=== PATIENT | female | born 1960 | race Caucasian/White ===

== ENCOUNTER 2017-06-14 19:10 | Emergency (ER) | payer MEDICAID ==
[2017-06-14] MEDS ORDERED: Lidocaine 1% 2 ML ONE (20:36)
--- NOTE | 2017-06-14 20:48 | CT ---
Head CT Technique: Multiple axial sections through the brain were obtained. Intravenous contrast was not utilized. Comparison: No previous intracranial imaging is available. Findings: Ventricles along with basal cisterns and sulci over the convexities are within normal limits for the patient's age. No abnormal parenchymal densities are seen. No evidence of intracranial hemorrhage. No midline shift or mass effect is seen. Bone window settings were reviewed which shows the visualized sinuses to appear clear. No acute calvarial abnormality is seen. Impression: 1. No acute intracranial abnormality is identified on noncontrast head CT exam. Diagnostic code #1
--- NOTE | 2017-06-14 21:03 | EDM.PDOC ---
ED HPI GENERAL MEDICAL PROBLEM - General Chief Complaint: Chest Pain Stated Complaint: CHEST PAIN Time Seen by Provider: 06/14/17 19:15 Source of Information: Reports: Patient, Family (Daughter), RN Notes Reviewed History Limitations: Reports: No Limitations - History of Present Illness INITIAL COMMENTS - FREE TEXT/NARRATIVE: The patient states that she has had central chest pain on and off, 2-3 times a day, for the past 4-5 days. It is a pressure sensation in character. It is a pain, not discomfort. The pain radiates to her right scapula and to her right upper extremity all the way down to her right elbow. At the same time, she experiences low back pain and, tonight only, right groin pain. The pain comes on gradually, and lasts anywhere from 5-30 minutes. It is not modifiable. The patient is unsure if she experiences associated dyspnea nausea, or sense of impending doom, but she does state that she has experienced associated diaphoresis. The patient has also been experiencing a headache on and off for the past 4-5 days. The headache will come on prior to the chest pain, and sometimes come on without the associated chest pain and other symptoms. Her headache is pounding and throbbing in character. She reports associated visual changes such as sparkling lights or wavy lines, and she has had associated nausea. She denies both photophobia and phonophobia. She feels generally weak with the headaches, but has not had any neurologic changes such as tingling, numbness, or focal weakness. The patient states that she had similar headaches when she was in her late teens , which eventually resolved, then recurred around 2012. She believes that she was told when she was a teenager that she had migraines, but does not recall ever receiving any sort of medical treatment. She believes that her last had imaging study was sometime before 2010. The patient has not taken any medications for any of her symptoms over the past 4-5 days. She states that she simply lies down in a dark room, and, typically, her symptoms have resolved by the morning. The patient does not have a PCP. Her last general physical exam was 3-5 years ago. Left Chest Pain Score (Numeric/FACES): 5 - Related Data Allergies Allergy/AdvReac Type Severity Reaction Status Date / Time No Known Allergies Allergy Verified 06/14/17 19:14 Home Meds: Home Meds . 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: - Past Surgical History HEENT Surgical History: Reports: Oral Surgery ([place] teeth extraction), Tonsillectomy GI Surgical History: Reports: Cholecystectomy Female Surgical History: Reports: Section (x 2), D&C (x 1), Endometrial Ablation Musculoskeletal Surgical History: Reports: Other (See Below) (Right thumb repair ) Social & Family History - Tobacco Use Smoking Status *Q: Former Smoker Years of Tobacco use: 38 Packs/Tins Daily: 1.5 Month Tobacco Last Used: Quit 2007 Second Hand Smoke Exposure: No - Caffeine Use Caffeine Use: Reports: Coffee - Alcohol Use Alcohol Use History: Yes Alcohol Use Frequency: Socially - Recreational Drug Use Recreational Drug Use: No - Living Situation & Occupation Living situation: Reports: , with Family Occupation: Employed ([employer]) ED ROS GENERAL - Review of Systems Review Of Systems: See Below Constitutional: Reports: No Symptoms HEENT: Reports: No Symptoms Respiratory: Reports: No Symptoms Cardiovascular: Reports: No Symptoms Endocrine: Reports: No Symptoms GI/Abdominal: Reports: Diarrhea (non-bloody, 2 days ago) : Reports: No Symptoms Musculoskeletal: Reports: No Symptoms Skin: Reports: No Symptoms Neurological: Reports: No Symptoms Psychiatric: Reports: No Symptoms Hematologic/Lymphatic: Reports: No Symptoms Immunologic: Reports: No Symptoms ED EXAM, GENERAL - Physical Exam Exam: See Below Exam Limited By: No Limitations General Appearance: Alert, WD/WN, Anxious Eye Exam: Bilateral Eye: Normal Inspection Ears: Normal External Exam, Hearing Grossly Normal Nose: Normal Inspection, No Blood Throat/Mouth: Normal Inspection, Normal Lips, Normal Voice, No Airway Compromise Head: Atraumatic, Normocephalic Neck: Normal Inspection, Full Range of Motion Respiratory/Chest: No Respiratory Distress, Lungs Clear, Normal Breath Sounds, No Accessory Muscle Use, Other (Tenderness to palpation of the sternum creating a sharp pain that the patient states is different than her presenting symptom) Cardiovascular: Normal Peripheral Pulses, Regular Rate, Rhythm, No Gallop, No JVD, No Murmur, No Rub Peripheral Pulses: 4+: Radial (L), Radial (R) GI/Abdominal: Normal Bowel Sounds, Soft, No Organomegaly, No Distention, No Abnormal Bruit, No Mass, Tender (Mild epigastric only. Nontender elsewhere.) (Female) Exam: Deferred Rectal (Female) Exam: Deferred Back Exam: Normal Inspection, Full Range of Motion. No: CVA Tenderness (L), CVA Tenderness (R) Extremities: Normal Inspection, Normal Range of Motion, No Pedal Edema, Normal Capillary Refill Neurological: Alert, Oriented, CN II-XII Intact, Normal Cognition, No Motor/ Sensory Deficits Psychiatric: Normal Affect, Anxious Skin Exam: Warm, Dry, Intact, Normal Color, No Rash EKG INTERPRETATION EKG Date: 06/14/17 Time: 19:19 Rhythm: NSR Rate (Beats/Min): 82 [place]: Normal P-Wave: Present QRS: Normal ST-T: Normal QT: Normal Comparison: NA - No Prior EKG Course - Vital Signs Last Recorded V/S: Last Vital Signs Temp 36.8 C 06/14/17 19:14 Pulse 89 06/14/17 19:14 Resp 20 06/14/17 19:14 BP 152/70 H 06/14/17 19:14 Pulse Ox 97 06/14/17 19:14 - Orders/Labs/Meds Orders: Active Orders 24 hr Category Date Time Status EKG Documentation Completion [RC] STAT Care 06/14/17 19:56 Active Chest 2V [CR] Stat Exams 06/14/17 19:55 Taken Labs: Laboratory Tests 06/14/17 06/14/17 06/14/17 Range/Units 19:50 19:50 19:50 WBC 6.25 (3.98-10.04) K/mm3 RBC 4.61 (3.98-5.22) M/mm3 Hgb 14.7 (11.2-15.7) gm/L Hct 42.6 (34.1-44.9) % MCV 92.4 (79.4-94.8) fl MCH 31.9 (25.6-32.2) pg MCHC 34.5 (32.2-35.5) g/dl RDW Std Deviation 39.7 (36.4-46.3) fL Plt Count 189 (182-369) K/mm3 MPV 10.9 (9.4-12.3) fl Neutrophils % (Manual) 62 H (40-60) % Band Neutrophils % 1 (0-10) % Lymphocytes % (Manual) 32 (20-40) % Atypical Lymphs % 0 % Monocytes % (Manual) 5 (2-10) % Eosinophils % (Manual) 0 L (0.7-5.8) % Basophils % (Manual) 0 L (0.1-1.2) Platelet Estimate Adequate RBC Morph Comment Normal PT 10.4 (8.0-13.0) SECONDS INR 0.96 APTT 25 (22-36) SECONDS D-Dimer, Quantitative 0.25 (0.19-0.59) mg/L Puncture Site ABG pH (7.35-7.45) ABG pCO2 (35.0-45.0) mmHg ABG pO2 (80.0-100.0) mmHg ABG HCO3 (22.0-26.0) meq/L ABG O2 Saturation (96.0-97.0) % ABG Base Excess (-2-2.0) O2 Delivery Device Sodium 146 H (136-145) mEq/L Potassium 3.8 (3.5-5.1) mEq/L Chloride 107 (98-107) mEq/L Carbon Dioxide 28 (21-32) mEq/L Anion Gap 14.8 (5-15) BUN 21 H (7-18) mg/dL Creatinine 1.2 H (0.55-1.02) mg/dL Est Cr Clr Drug Dosing 38.56 mL/min Estimated GFR (MDRD) 46 (>60) mL/min BUN/Creatinine Ratio 17.5 (14-18) Glucose 108 H (74-106) mg/dL Calcium 8.9 (8.5-10.1) mg/dL Total Bilirubin 0.4 (0.2-1.0) mg/dL AST 13 L (15-37) U/L ALT 19 (14-59) U/L Alkaline Phosphatase 71 (46-116) U/L Troponin I < 0.017 (0.00-0.056) ng/mL Total Protein 7.1 (6.4-8.2) g/dl Albumin 4.0 (3.4-5.0) g/dl Globulin 3.1 gm/dL Albumin/Globulin Ratio 1.3 (1-2) Lipase 300 (73-393) U/L 06/14/17 Range/Units 19:55 WBC (3.98-10.04) K/mm3 RBC (3.98-5.22) M/mm3 Hgb (11.2-15.7) gm/L Hct (34.1-44.9) % MCV (79.4-94.8) fl MCH (25.6-32.2) pg MCHC (32.2-35.5) g/dl RDW Std Deviation (36.4-46.3) fL Plt Count (182-369) K/mm3 MPV (9.4-12.3) fl Neutrophils % (Manual) (40-60) % Band Neutrophils % (0-10) % Lymphocytes % (Manual) (20-40) % Atypical Lymphs % % Monocytes % (Manual) (2-10) % Eosinophils % (Manual) (0.7-5.8) % Basophils % (Manual) (0.1-1.2) Platelet Estimate RBC Morph Comment PT (8.0-13.0) SECONDS INR APTT (22-36) SECONDS D-Dimer, Quantitative (0.19-0.59) mg/L Puncture Site Lt radial ABG pH 7.47 H (7.35-7.45) ABG pCO2 35.0 (35.0-45.0) mmHg ABG pO2 99.0 (80.0-100.0) mmHg ABG HCO3 25.3 (22.0-26.0) meq/L ABG O2 Saturation 98.6 H (96.0-97.0) % ABG Base Excess 2.4 H (-2-2.0) O2 Delivery Device Room air Sodium (136-145) mEq/L Potassium (3.5-5.1) mEq/L Chloride (98-107) mEq/L Carbon Dioxide (21-32) mEq/L Anion Gap (5-15) BUN (7-18) mg/dL Creatinine (0.55-1.02) mg/dL Est Cr Clr Drug Dosing mL/min Estimated GFR (MDRD) (>60) mL/min BUN/Creatinine Ratio (14-18) Glucose (74-106) mg/dL Calcium (8.5-10.1) mg/dL Total Bilirubin (0.2-1.0) mg/dL AST (15-37) U/L ALT (14-59) U/L Alkaline Phosphatase (46-116) U/L Troponin I (0.00-0.056) ng/mL Total Protein (6.4-8.2) g/dl Albumin (3.4-5.0) g/dl Globulin gm/dL Albumin/Globulin Ratio (1-2) Lipase (73-393) U/L Meds: Medications Discontinued Medications Generic Name Dose Route Start Last Admin Trade Name Leslie PRN Reason Stop Dose Admin Lidocaine HCl Confirm 06/14/17 20:36 Xylocaine-Mpf 1% Administered 06/14/17 20:37 Dose 2 mls @ as directed .ROUTE .STK-MED ONE - Re-Assessments/Exams Free Text/Narrative Re-Assessment/Exam: 06/14/17 20:15 Two-view chest radiograph appears to be grossly unremarkable. Cardiac silhouette is within normal limits. No pulmonary vascular congestion. No pleural effusions. No focal infiltrate. No pneumothorax. No left breast shadow, noted. Formal read per the Radiologist pending. 06/14/17 22:26 CT of the head without contrast is read by Dr. Fu as: 1. No acute intracranial abnormality is identified on noncontrast head CT exam. 06/14/17 22:37 Test results discussed with the patient. Today's workup is unremarkable, and does not explain the constellation of symptoms that the patient presented with. I suspect that the patient is suffering from migraine headaches with migraine equivalents. Ordinarily, I would prescribe the patient a migraine abortive medication, such as Maxalt, however, such a medication would be contraindicated in the presence of coronary disease. Clinically, I do not suspect that the patient's chest pain was cardiac in etiology, however, I am recommending that she follow-up with Dr. Tarango to arrange for an outpatient stress test. Presuming the stress test is negative, she could then be prescribed Maxalt, or any other medication that she and Dr. Tarango felt appropriate to treat migraines. The patient is in agreement with this approach. Departure - Departure Time of Disposition: 22:40 Disposition: Home, Self-Care 01 Condition: Good Clinical Impression: Migraine equivalent syndrome, Migraine headache with aura, Chest pain, Low back pain - Discharge Information Instructions: Migraine Headache, [id number], Chest Pain Observation Referrals: PCP,None [Primary Care Provider] - Karrie Tarango [Physician] - Forms: ED Department Discharge Additional Instructions: You were seen in the emergency room for chest pain, low back pain, right groin pain, and a headache. Workup in the ER included blood work, an arterial blood gas, an ECG, a chest x- ray, and a CT scan of your head. Your entire workup was unremarkable, and does not explain the constellation of your symptoms. Based on your history and physical examination, you are MOST LIKELY suffering from migraine headaches, and your other symptoms (chest pain, low back pain, groin pain) may be due to the migraine, as well, a condition known as a migraine equivalent. We are recommending that you follow-up with Dr. Tarango to arrange for an outpatient stress test to confirm that your chest pain was not cardiac in etiology. Presuming your stress test is negative, you and Dr. Tarango can then discuss migraine treatment options. If any other problems, please do not hesitate to return to the ER. - My Orders Last 24 Hours: My Active Orders 06/14/17 19:55 Chest 2V [CR] Stat 06/14/17 19:56 EKG Documentation Completion [RC] STAT - Assessment/Plan Last 24 Hours: My Active Orders 06/14/17 19:55 Chest 2V [CR] Stat 06/14/17 19:56 EKG Documentation Completion [RC] STAT
--- NOTE | 2017-06-15 08:05 | CR ---
Chest: Two views of the chest were obtained. Comparison: No previous study. Heart size and mediastinum are normal. Lungs are clear. Bony structures are within normal limits for the patient's age. Surgical clips are seen from prior cholecystectomy. Calcification noted overlying the upper pole of the right kidney possibly due to nonobstructing renal stone. Impression: 1. Incidental findings. Nothing acute is seen. Diagnostic code #2
== END 2017-06-14 22:50 | disposition home or self-care (01) ==
LOC: JD.ED 19:10
DX: G43.109 Migraine with aura, not intractable, without status migrainosus (principal); M54.5 Low back pain; R07.9 Chest pain, unspecified; Z87.891 Personal history of nicotine dependence
CPT/HCPCS: 36415; 36600; 70450; 70450-26; 71020; 71020-26; 80053; 82803; 83690; 84484; 85025; 85379; 85610; 85730; 93005; 93010; 99285; 99285-25

== ENCOUNTER 2017-07-15 11:51 | Emergency (ER) | payer MEDICAID ==
--- NOTE | 2017-07-15 12:19 | EDM.PDOC ---
ED HPI GENERAL MEDICAL PROBLEM - General Chief Complaint: Genitourinary Problem Stated Complaint: BLOOD IN URINE Time Seen by Provider: 07/15/17 12:02 Source of Information: Reports: Patient History Limitations: Reports: No Limitations - History of Present Illness INITIAL COMMENTS - FREE TEXT/NARRATIVE: 57-year-old female presents for evaluation treatment of hematuria. Patient reports started a few hours ago. She reports that she woke this morning urinating did not appreciate any blood in her urine then. She states a few hours ago she noticed she had some blood in her urine. She also states her on that sometimes she developed pain to the right pelvis. She describes this as a dull steady pain. She denies any fevers, nausea, vomiting, dysuria, back pain or flank pain. She reports that she did have one episode of diarrhea today prior to hematuria starting. No blood in her stool. She reports she does not have frequent urinary tract infections and has never been diagnosed with done. She did have a kidney stone several years ago and had significant pain with that. There patient reports that she had history of kidney problems this child. States that she had "brown urine" and was hospitalized as a child. She does not see nephrologists and does not know what she was diagnosed with. Patient is postmenopausal. Primary care providers Dr. Gage. Onset: Today Right Lower Abdominal Pain Score (Numeric/FACES): 1 - Related Data Allergies Allergy/AdvReac Type Severity Reaction Status Date / Time No Known Allergies Allergy Verified 07/15/17 11:56 Home Meds: Home Meds . 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: - Past Surgical History HEENT Surgical History: Reports: Oral Surgery, Tonsillectomy GI Surgical History: Reports: Cholecystectomy Female Surgical History: Reports: Section, D&C, Endometrial Ablation Musculoskeletal Surgical History: Reports: Other (See Below) Social & Family History - Tobacco Use Smoking Status *Q: Former Smoker Years of Tobacco use: 40 Packs/Tins Daily: 1 Used Tobacco, but Quit: No Month Tobacco Last Used: Quit 2007 Second Hand Smoke Exposure: No - Caffeine Use Caffeine Use: Reports: Coffee - Recreational Drug Use Recreational Drug Use: No - Living Situation & Occupation Living situation: Reports: , with Family Occupation: Employed ([employer] ED ROS GENERAL - Review of Systems Review Of Systems: See Below Constitutional: Denies: Fever, Chills, Malaise GI/Abdominal: Reports: Diarrhea (x1 today). Denies: Abdominal Pain, Nausea, Vomiting : Reports: Hematuria, Pain (right groin). Denies: Dysuria, Flank Pain Musculoskeletal: Denies: Back Pain ED EXAM, RENAL/ - Physical Exam Exam: See Below Exam Limited By: No Limitations General Appearance: Alert, WD/WN, No Apparent Distress, Anxious, Thin Eye Exam: Bilateral Eye: Normal Inspection Ears: Normal External Exam Nose: Normal Inspection Throat/Mouth: Normal Inspection, Normal Voice, No Airway Compromise Respiratory/Chest: No Respiratory Distress, Lungs Clear, Normal Breath Sounds Cardiovascular: Normal Peripheral Pulses, Regular Rate, Rhythm, No Murmur GI/Abdominal: Normal Bowel Sounds, Soft, Non-Tender, No Mass Back Exam: Normal Inspection. No: CVA Tenderness (L), CVA Tenderness (R) Neurological: Alert, Oriented, Normal Cognition Psychiatric: Normal Affect, Normal Mood Skin Exam: Warm, Dry, Normal Color Course - Vital Signs Last Recorded V/S: Last Vital Signs Temp 36.7 C 07/15/17 11:57 Pulse 83 07/15/17 11:57 Resp BP 145/60 H 07/15/17 11:57 Pulse Ox 99 07/15/17 11:57 - Orders/Labs/Meds Labs: Laboratory Tests 07/15/17 07/15/17 07/15/17 Range/Units 12:07 13:20 13:20 WBC 7.19 (3.98-10.04) K/mm3 RBC 4.52 (3.98-5.22) M/mm3 Hgb 14.4 (11.2-15.7) gm/L Hct 42.2 (34.1-44.9) % MCV 93.4 (79.4-94.8) fl MCH 31.9 (25.6-32.2) pg MCHC 34.1 (32.2-35.5) g/dl RDW Std Deviation 40.7 (36.4-46.3) fL Plt Count 177 L (182-369) K/mm3 MPV 10.6 (9.4-12.3) fl Neut % (Auto) 75.1 H (34.0-71.1) % Lymph % (Auto) 17.9 L (19.3-51.7) % [place] % (Auto) 6.5 (4.7-12.5) % Eos % (Auto) 0.3 L (0.7-5.8) Baso % (Auto) 0.1 (0.1-1.2) % Neut # (Auto) 5.39 (1.56-6.13) K/mm3 Lymph # (Auto) 1.29 (1.18-3.74) K/mm3 [place] # (Auto) 0.47 H (0.24-0.36) K/mm3 Eos # (Auto) 0.02 L (0.04-0.36) K/mm3 Baso # (Auto) 0.01 (0.01-0.08) K/mm3 Sodium 145 (136-145) mEq/L Potassium 4.5 (3.5-5.1) mEq/L Chloride 107 (98-107) mEq/L Carbon Dioxide 28 (21-32) mEq/L Anion Gap 14.5 (5-15) BUN 17 (7-18) mg/dL Creatinine 0.7 (0.55-1.02) mg/dL Est Cr Clr Drug Dosing 66.10 mL/min Estimated GFR (MDRD) > 60 (>60) mL/min BUN/Creatinine Ratio 24.3 H (14-18) Glucose 98 (74-106) mg/dL Calcium 9.2 (8.5-10.1) mg/dL Total Bilirubin 0.3 (0.2-1.0) mg/dL AST 16 (15-37) U/L ALT 19 (14-59) U/L Alkaline Phosphatase 75 (46-116) U/L Total Protein 6.9 (6.4-8.2) g/dl Albumin 4.0 (3.4-5.0) g/dl Globulin 2.9 gm/dL Albumin/Globulin Ratio 1.4 (1-2) Urine Color Red H (Yellow) Urine Appearance Cloudy H (Clear) Urine pH 6.0 (5.0-8.0) Ur Specific [place] > or = 1.030 (1.005-1.030) Urine Protein 2+ H (Negative) Urine Glucose (UA) Negative (Negative) Urine Ketones Negative (Negative) Urine Occult Blood 3+ H (Negative) Urine Nitrite Negative (Negative) Urine Bilirubin Negative (Negative) Urine Urobilinogen 0.2 (0.2-1.0) Ur Leukocyte Esterase Negative (Negative) Urine RBC Too numerous to cnt H (0-5) /hpf Urine WBC Not seen (0-5) /hpf Ur Epithelial Cells Not seen (0-5) /hpf Urine Bacteria Moderate H (FEW) /hpf Urine Mucus Not seen (FEW) /hpf Meds: Medications Discontinued Medications Generic Name Dose Route Start Last Admin Trade Name Frejerica PRN Reason Stop Dose Admin Iopamidol 100 ml 07/15/17 13:20 07/15/17 13:31 Isovue-300 (61%) IVPUSH 07/15/17 13:21 100 ml ONETIME ONE Administration Sodium Chloride 10 ml 07/15/17 12:55 07/15/17 13:19 Saline Flush FLUSH 10 ml ASDIRECTED PRN Administration Keep Vein Open Sodium Chloride 10 ml 07/15/17 13:20 07/15/17 13:31 Saline Flush FLUSH 10 ml ONETIME PRN Administration IV FLUSH - Radiology Interpretation Free Text/Narrative:: CT of the abdomen and pelvis with and without IV contrast impression per Dr. Fu: 1. 8mm stone within the right renal pelvis near the UPJ which causes no obstruction at this time but given its location could cause intermittent obstruction. Smaller nonobstructing stone is located within the right kidney measuring 3mm. No ureteral dilatation or obstructing ureteral stone is seen. No renal mass is identified. 2. Other incidental findings. CT Results Date: 07/15/17 - Re-Assessments/Exams Free Text/Narrative Re-Assessment/Exam: 07/15/17 14:21 Patient's urine results returned with 2+ protein, 3+ blood. No nitrites or leukocytes. Many bacteria seen on microscopy. This was sent for culture. The decision was then made to go ahead and get a CT of the abdomen and pelvis with and without contrast rule out stones and malignancies. I also obtained Labs. The labs and CT have returned. She does have an 8 mm stone in the right renal pelvis near the UPJ. Her labs are unremarkable. I will have her follow-up with Dr. Brothers for the 8 mm stone in right kidney. This is likely was causing hematuria. As stated her urine was sent for culture. I do not feel we need to start her on antibiotics today but we will notify her if her urine culture does return positive. I will have her follow-up with Dr. Brothers for the kidney stone. She may follow up with Dr. Gage as needed in the interim. Discharge instructions as documented. Departure - Departure Time of Disposition: 14:22 Disposition: Home, Self-Care 01 Condition: Good Clinical Impression: Hematuria, Nephrolithiasis - Discharge Information Instructions: Kidney Stones, [id number] Referrals: PCP,None [Ordering Only Provider] - Murphy Brothers MD [Ordering Only Provider] - Karrie Tarango [Primary Care Provider] - Forms: ED Department Discharge Additional Instructions: Call tomorrow to schedule an appointment with Dr. Brothers in [place]. Please let them know you were in the ER for hematuria and found to have an 8mm nonobstructing stone in the right renal pelvis near the UPJ. [facility] [address] [address] Toll Free: Appointments: [id number] Tylenol or Motrin as needed for pain relief. make sure you are drinking plenty of fluids. Your urine was sent for culture today. We will notify you if you require antibiotics for any infection. If you do not hear from us, you do not need antibiotics. Expect to have some hematuria. If this significantly worsens or he begins to feel lightheaded, dizzy or have syncopal episodes please return to the ER . Follow-up with your family medicine provider as needed. Please return to the ER if your symptoms change or worsen.
[2017-07-15] MEDS ORDERED: Sodium Chloride 0.9% 10 ML Syringe FLUSH PRN ×2 (12:55→13:20)
[2017-07-15] MEDS ORDERED: Iopamidol 612 MG/ML 100 ML Bottle IVPUSH ONE (13:20)
--- NOTE | 2017-07-15 14:06 | CT ---
CT abdomen and pelvis (without and with intravenous contrast) Technique: Multiple axial sections were obtained from above the dome of the diaphragm inferiorly through the pubic symphysis with no intravenous and oral contrast. Intravenous contrast was then given and images were obtained through the kidneys at 40 seconds. 5 minute delayed images were obtained from above the dome of the diaphragm inferiorly through the pubic symphysis. Comparison: No prior abdominal imaging. Findings: 8 mm calcification seen within the right renal pelvis near the UPJ. Left kidney shows no abnormal calcifications. Nonobstructing stone measuring 3 mm is noted within the right kidney. No ureteral dilatation or ureteral stone is seen. Both kidneys show symmetric contrast enhancement. No hydronephrosis or mass is seen within either kidney. Contrast is noted within the ureters and within the bladder on delayed images. Visualized lung bases are clear. Liver and spleen show no focal abnormality. Surgical clips are seen from prior cholecystectomy. Adrenal glands show no nodule. Pancreas is within normal limits. Aorta shows no aneurysmal dilatation. No retroperitoneal adenopathy or mesenteric abnormalities are seen. No pelvic mass or adenopathy is seen. Bone window settings were reviewed which show slight degenerative change within the lower apophyseal joints. Impression: 1. 8 mm stone within the right renal pelvis near the UPJ which causes no obstruction at this time but given its location could cause intermittent obstruction. Smaller nonobstructing stone is noted within the right kidney measuring 3 mm. No ureteral dilatation or obstructing ureteral stone is seen. No renal mass is identified. 2. Other incidental findings. Diagnostic code #3
== END 2017-07-15 15:00 | disposition home or self-care (01) ==
LOC: JD.ED 11:51
DX: N20.0 Calculus of kidney (principal); R31.9 Hematuria, unspecified; Z87.891 Personal history of nicotine dependence
CPT/HCPCS: 36415; 74178; 80053; 81001; 85025; 87086; 99284; J7050; Q9967

== ENCOUNTER 2017-08-26 22:49 | Emergency (ER) | payer MEDICAID ==
--- NOTE | 2017-08-27 00:24 | EDM.PDOC ---
ED HPI GENERAL MEDICAL PROBLEM - General Chief Complaint: Abdominal Pain Stated Complaint: SWELLING IN STOMACH POSSIBLE KIDNEY STONE Time Seen by Provider: 08/26/17 23:44 Source of Information: Reports: Patient, Family (Son) History Limitations: Reports: No Limitations - History of Present Illness INITIAL COMMENTS - FREE TEXT/NARRATIVE: The patient states that she felt some stomach swelling, and has had intermittent right upper quadrant pain with certain movements, this evening. She has had the abdominal bloating sensation in the past, but not the intermittent right upper quadrant abdominal pain. She is status post a cholecystectomy in 1998. No recent fever, nausea, vomiting, constipation, or urinary symptoms. She states that she had watery diarrhea over the past 2 days. She has not tried any home remedies or treatments. The patient's PCP is Dr. Tarango. Mid-Anterior Abdominal Pain Score (Numeric/FACES): 1 - Related Data Allergies Allergy/AdvReac Type Severity Reaction Status Date / Time No Known Allergies Allergy Verified 07/15/17 11:56 Home Meds: Home Meds . [No Known Home Meds] 06/14/17 [History] Past Medical History Genitourinary History: Reports: Renal Calculus YARD JOCKEY History: Reports: - Past Surgical History HEENT Surgical History: Reports: Oral Surgery ([place] teeth extraction), Tonsillectomy GI Surgical History: Reports: Cholecystectomy (1998) Female Surgical History: Reports: Section (x 2), D&C (x 1), Endometrial Ablation Musculoskeletal Surgical History: Reports: Other (See Below) (Right thumb repair ) Social & Family History - Tobacco Use Smoking Status *Q: Current Some Day Smoker Years of Tobacco use: 40 Packs/Tins Daily: 1 Used Tobacco, but Quit: Yes Month Tobacco Last Used: 100 Second Hand Smoke Exposure: No - Caffeine Use Caffeine Use: Reports: Coffee - Recreational Drug Use Recreational Drug Use: No - Living Situation & Occupation Living situation: Reports: , with Family 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) ED ROS GENERAL - Review of Systems Review Of Systems: See Below Constitutional: Reports: No Symptoms HEENT: Reports: No Symptoms Respiratory: Reports: No Symptoms Cardiovascular: Reports: No Symptoms Endocrine: Reports: No Symptoms GI/Abdominal: Reports: No Symptoms : Reports: No Symptoms Musculoskeletal: Reports: No Symptoms Skin: Reports: No Symptoms Neurological: Reports: No Symptoms Psychiatric: Reports: No Symptoms Hematologic/Lymphatic: Reports: No Symptoms Immunologic: Reports: No Symptoms ED EXAM, GI/ABD - Physical Exam Exam: See Below Exam Limited By: No Limitations General Appearance: Alert, WD/WN, No Apparent Distress Eyes: Bilateral: Normal Appearance, EOMI Ears: Normal External Exam, Hearing Grossly Normal Nose: Normal Inspection, No Blood Throat/Mouth: Normal Inspection, Normal Lips, Normal Voice, No Airway Compromise Head: Atraumatic, Normocephalic Neck: Normal Inspection, Full Range of Motion Respiratory/Chest: No Respiratory Distress, Lungs Clear, Normal Breath Sounds, No Accessory Muscle Use Cardiovascular: Normal Peripheral Pulses, Regular Rate, Rhythm, No Gallop, No JVD, No Murmur, No Rub GI/Abdominal Exam: Normal Bowel Sounds, Soft, No Organomegaly, No Distention, No Abnormal Bruit, No Mass, Tender (Minimal, epigastric. Nontender elsewhere.) (Female) Exam: Deferred Rectal (Female) Exam: Deferred Back Exam: Normal Inspection, Full Range of Motion. No: CVA Tenderness (L), CVA Tenderness (R) Extremities: Normal Inspection, Normal Range of Motion, No Pedal Edema, Normal Capillary Refill Neurological: Alert, Oriented, Normal Cognition, No Motor/Sensory Deficits Psychiatric: Normal Affect Skin Exam: Warm, Dry, Intact, Normal Color, No Rash Course - Vital Signs Last Recorded V/S: Last Vital Signs Temp 37.1 C 08/26/17 22:59 Pulse 87 08/26/17 22:59 Resp 18 08/26/17 22:59 BP 129/64 08/26/17 22:59 Pulse Ox 98 08/26/17 22:59 - Orders/Labs/Meds Orders: Active Orders 24 hr Category Date Time Status Abdomen 1V Upright [CR] Stat Exams 08/27/17 00:22 Taken CULTURE URINE [RM] Stat Lab 08/27/17 00:45 Received Labs: Laboratory Tests 08/27/17 08/27/17 08/27/17 Range/Units 00:37 00:37 00:45 WBC 8.75 (3.98-10.04) K/mm3 RBC 4.26 (3.98-5.22) M/mm3 Hgb 13.5 (11.2-15.7) gm/L Hct 40.2 (34.1-44.9) % MCV 94.4 (79.4-94.8) fl MCH 31.7 (25.6-32.2) pg MCHC 33.6 (32.2-35.5) g/dl RDW Std Deviation 40.9 (36.4-46.3) fL Plt Count 190 (182-369) K/mm3 MPV 10.3 (9.4-12.3) fl Neutrophils % (Manual) 68 H (40-60) % Band Neutrophils % 0 (0-10) % Lymphocytes % (Manual) 27 (20-40) % Atypical Lymphs % 0 % Monocytes % (Manual) 3 (2-10) % Eosinophils % (Manual) 2 (0.7-5.8) % Basophils % (Manual) 0 L (0.1-1.2) Platelet Estimate Adequate RBC Morph Comment Normal Sodium 144 (136-145) mEq/L Potassium 3.7 (3.5-5.1) mEq/L Chloride 108 H (98-107) mEq/L Carbon Dioxide 27 (21-32) mEq/L Anion Gap 12.7 (5-15) BUN 21 H (7-18) mg/dL Creatinine 1.0 (0.55-1.02) mg/dL Est Cr Clr Drug Dosing 46.27 mL/min Estimated GFR (MDRD) 57 (>60) mL/min BUN/Creatinine Ratio 21.0 H (14-18) Glucose 102 (74-106) mg/dL Calcium 9.0 (8.5-10.1) mg/dL Total Bilirubin 0.4 (0.2-1.0) mg/dL AST 16 (15-37) U/L ALT 19 (14-59) U/L Alkaline Phosphatase 71 (46-116) U/L Total Protein 6.5 (6.4-8.2) g/dl Albumin 3.7 (3.4-5.0) g/dl Globulin 2.8 gm/dL Albumin/Globulin Ratio 1.3 (1-2) Lipase 199 (73-393) U/L Urine Color Yellow (Yellow) Urine Appearance Clear (Clear) Urine pH 5.5 (5.0-8.0) Ur Specific [place] > or = 1.030 (1.005-1.030) Urine Protein 2+ H (Negative) Urine Glucose (UA) Negative (Negative) Urine Ketones Negative (Negative) Urine Occult Blood 3+ H (Negative) Urine Nitrite Negative (Negative) Urine Bilirubin Negative (Negative) Urine Urobilinogen 0.2 (0.2-1.0) Ur Leukocyte Esterase 1+ H (Negative) Urine RBC 30-40 H (0-5) /hpf Urine WBC 20-30 H (0-5) /hpf Ur Epithelial Cells 5-10 H (0-5) /hpf Urine Bacteria Moderate H (FEW) /hpf Urine Mucus Moderate H (FEW) /hpf Meds: Medications Discontinued Medications Generic Name Dose Route Start Last Admin Trade Name Freq PRN Reason Stop Dose Admin Trimethoprim/Sulfamethoxazole 1 tab 08/27/17 01:32 Septra Ds PO 08/27/17 01:33 ONETIME ONE - Re-Assessments/Exams Free Text/Narrative Re-Assessment/Exam: 08/27/17 00:23 The patient reports abdominal bloating and intermittent right upper quadrant abdominal pain with certain movements, tonight. On examination, she has active bowel sounds, and mild epigastric tenderness, otherwise, her physical exam is benign. I do not believe the patient requires a CT scan of the abdomen and pelvis, however, I have ordered blood work, a urinalysis, and and upright abdominal radiographs. 08/27/17 01:29 Upright abdominal radiograph appears to demonstrate a considerable amount of stool in the rectum and sigmoid colon, with a increased air in the proximal, transverse, and proximal half of the descending colon. There are findings consistent with redundant colon. Air. Formal read per the Radiologist pending. 08/27/17 01:40 Test results discussed with the patient and her son. The patient's urinalysis is consistent with a UTI. I have ordered a urine culture, and will write an [facility]'s prescription for oral Bactrim x 5 days. I would like her to follow- up with her PCP, Dr. Tarango, in 3 days, to check on the urine culture results. The patient's abdominal bloating sensation appears to be due to constipation with backed up gas in the colon. I'm recommending that the patient drink half a bottle of magnesium citrate, and use mineral oil enemas as needed, until she gets relief. Departure - Departure Time of Disposition: 01:43 Disposition: Home, Self-Care 01 Condition: Good Clinical Impression: Constipation, UTI (urinary tract infection) - Discharge Information Instructions: Constipation, Adult, [id number], Urinary Tract Infection, Adult , [id number] Referrals: Karrie Tarango [Primary Care Provider] - Forms: ED Department Discharge Additional Instructions: You were seen in the emergency room for abdominal bloating and pain. Workup in the ER included blood work, a urinalysis, and an abdominal x-ray. Your workup showed that your abdominal bloating is due to backed up gas in your colon, due to constipation. You also have a urinary tract infection. For your constipation, we recommend that you drink half a bottle of magnesium citrate, and use mineral oil enemas, as many as needed until you get relief. If you do not have relief within 2 hours of drinking the magnesium citrate, drink the second half of the bottle. For your urinary tract infection, take one tablet of the antibiotic Bactrim every 12 hours, as prescribed. Finish the entire prescription unless told otherwise by Dr. Tarango. Stay adequately hydrated. A sample of your urine has been sent for culture. Follow-up with Dr. Tarango morning, 08/30/2017, to check on your urine culture results, to make sure that you are on the correct antibiotic. If any other problems, please do not hesitate to return to the ER. - My Orders Last 24 Hours: My Active Orders 08/27/17 00:22 Abdomen 1V Upright [CR] Stat 08/27/17 00:45 CULTURE URINE [RM] Stat - Assessment/Plan Last 24 Hours: My Active Orders 08/27/17 00:22 Abdomen 1V Upright [CR] Stat 08/27/17 00:45 CULTURE URINE [RM] Stat
[2017-08-27] MEDS ORDERED: Sulfamethoxazole/Trimethoprim 800-160 MG Tab PO ONE (01:32)
--- NOTE | 2017-08-27 11:12 | CR ---
Abdomen: Supine view of the abdomen was obtained. Comparison: Prior CT abdomen and pelvis exam of 07/15/17. Surgical clips are seen from prior cholecystectomy. Bowel material overlies the kidneys making evaluation for renal calculi difficult. Bowel gas pattern is normal. No soft tissue abnormality is seen. Bony structures appear within normal limits. Impression: 1. Bowel material overlying the kidneys making evaluation for renal calculi difficult. 2. Other incidental findings. Diagnostic code #2
== END 2017-08-27 01:54 | disposition home or self-care (01) ==
LOC: JD.ED 22:49
DX: K59.00 Constipation, unspecified (principal); N39.0 Urinary tract infection, site not specified; F17.210 Nicotine dependence, cigarettes, uncomplicated; Z90.49 Acquired absence of other specified parts of digestive tract
CPT/HCPCS: 36415; 74018; 74018-26; 80053; 81001; 83690; 85025; 87086; 99283; 99284

== ENCOUNTER → 2017-09-19 | Day surgery (SDC) | payer MEDICAID ==
[~2017-09-19] MED LIST: Lactated Ringers 1,000 ML IV SCH; Lidocaine 1% 4 ML ONE; Lidocaine 1%/Sod Bicarbonate in NS 8.4% 1 ML Syringe IDERM PRN; Ondansetron 4 MG/2 ML SDV IVPUSH PRN; Propofol 200 MG/20 ML SDV ONE; Sodium Chloride 0.9% 10 ML Syringe FLUSH PRN; fentaNYL 100 MCG/2 ML SDV ONE
--- NOTE | 2017-09-19 08:08 | PCM.PREANE ---
Preanesthetic Assessment - Anesthesia/Transfusion/Family Hx Anesthesia History: Prior Anesthesia Without Reaction Family History of Anesthesia Reaction: No Transfusion History: No Prior Transfusion(s) - Review of Systems General: No Symptoms Pulmonary: No Symptoms Cardiovascular: No Symptoms Gastrointestinal: No Symptoms, Constipation (new years in er) Neurological: No Symptoms Other: Reports: Easy Bruising, Neck Pain (bone on bone) - Physical Assessment NPO Status Date: 09/18/17 NPO Status Time: 20:30 Pulse: 103 O2 Sat by Pulse Oximetry: 97 Respiratory Rate: 20 Blood Pressure: 118/52 Temperature: 97.3 F Height: 5 ft 1 in Weight: 51 kg ASA Class: 2 Mental Status: Alert & Oriented x3 Airway Class: Mallampati = 1 Dentition: Reports: Normal Dentition Thyro-Mental Finger Breadths: 3 Mouth Opening Finger Breadths: 3 ROM/Head Extension: Full Lungs: Clear to Auscultation, Normal Respiratory Effort Cardiovascular: Regular Rate, Regular Rhythm - Allergies Allergies/Adverse Reactions: Allergies Allergy/AdvReac Type Severity Reaction Status Date / Time No Known Allergies Allergy Verified 09/18/17 09:13 - Blood Blood Available: No - Acknowledgements Anesthesia Type Planned: MAC Pt an Appropriate Candidate for the Planned Anesthesia: Yes Alternatives and Risks of Anesthesia Discussed w Pt/Guardian: Yes Pt/Guardian Understands and Agrees with Anesthesia Plan: Yes PreAnesthesia Questionnaire Cardiovascular History: Reports: None Respiratory History: Reports: None Gastrointestinal History: Reports: Other (See Below) Other Gastrointestinal History: hematochezia Genitourinary History: Reports: Renal Calculus RIBBON [employer]ER History: Reports: Neurological History: Reports: Migraines - Past Surgical History GI Surgical History: Reports: Cholecystectomy Female Surgical History: Reports: Section, Tubal Ligation Musculoskeletal Surgical History: Reports: Other (See Below) (thumb surgery and wrist) - SUBSTANCE USE Smoking Status *Q: Former Smoker (quit 2007- year history) Tobacco Use Within Last Twelve Months: Cigarettes Second Hand Smoke Exposure: No Days Per Week of Alcohol Use: 1 (rare) Recreational Drug Use History: No - HOME MEDS Home Medications: Home Meds . [No Known Home Meds] 06/14/17 [History] - CURRENT (IN HOUSE) MEDS Current Meds: Current Medications Lactated Ringer's (Ringers, Lactated) 1,000 mls @ 125 mls/hr IV ASDIRECTED ANIVAL Stop: 09/19/17 23:00 Lidocaine/Sodium Bicarbonate (Buffered Lidocaine 1% In Ns 8.4%) 0.25 ml IDERM ONETIME PRN PRN Reason: Prior to IV Start Stop: 09/19/17 18:00 Sodium Chloride (Saline Flush) 10 ml FLUSH ASDIRECTED PRN PRN Reason: Keep Vein Open Stop: 09/19/17 18:00
--- NOTE | 2017-09-19 08:58 | PCM.OPNOTE ---
- General Post-Op/Procedure Note Date of Surgery/Procedure: 09/19/17 Operative Procedure(s): Colonoscopy Findings: Normal endoscopic examination Pre Op Diagnosis: History of intermittent rectal bleeding Post-Op Diagnosis: Normal endoscopy Anesthesia Technique: MAC, Moderate Sedation Primary Surgeon: Eben Good Pathology: None EBL in mLs: 0 Complications: None Condition: Good Free Text/Narrative:: After adequate IV sedation and analgesia was obtained with monitoring the patient was placed on her left side. Perianal inspection and digital rectal examination were performed next and were normal. A lubricated colonoscope was inserted into the rectum and advanced to the cecum without difficulty. The cecum was endoscopically normal. I intubated the terminal ileum which was grossly normal as well. The aescending colon transverse and descending colons were endoscopically normal as well with no mass lesions or inflammatory changes seen. The sigmoid and rectum in both views were unremarkable. Photographs were taken for the patient and for the medical record. Air was removed as I finished the procedure which she tolerated well.
--- NOTE | 2017-09-19 09:37 | PCM48HPAN ---
Post Anesthesia Note - EVALUATION WITHIN 48HRS OF ANESTHETIC Vital Signs in Normal Range: Yes Patient Participated in Evaluation: Yes Respiratory Function Stable: Yes Airway Patent: Yes Cardiovascular Function Stable: Yes Hydration Status Stable: Yes Pain Control Satisfactory: Yes Nausea and Vomiting Control Satisfactory: Yes Mental Status Recovered: Yes
== END | disposition home or self-care (01) ==
LOC: JD.SDS 07:45
PROVIDERS: ATTEND Surgery
DX: K92.1 Melena (principal); J45.909 Unspecified asthma, uncomplicated; N95.2 Postmenopausal atrophic vaginitis; N95.1 Menopausal and female climacteric states; G43.909 Migraine, unspecified, not intractable, without status migrainosus; Z87.442 Personal history of urinary calculi; Z90.49 Acquired absence of other specified parts of digestive tract; Z98.51 Tubal ligation status; Z87.891 Personal history of nicotine dependence
CPT/HCPCS: 45378; J3010; J7120; J2704

== ENCOUNTER 2023-02-28 23:45 | Emergency (ER) | payer SELFPAY | END 2023-03-01 00:58 | disposition home or self-care (01) | LOC: JD.ED 23:45 | DX: S50.12XA Contusion of left forearm, initial encounter (principal); S30.860A Insect bite (nonvenomous) of lower back and pelvis, initial encounter | CPT/HCPCS: 99283 ==